=== PATIENT | male | born 1960 | race Caucasian/White ===

== ENCOUNTER 2022-10-21 08:45 | Outpatient (RCR) | payer BC, SELFPAY | END 2023-01-17 10:30 | disposition home or self-care (01) | PROVIDERS: PCP Family Medicine; Visit Provider Family Medicine | DX: S49.92XA Unspecified injury of left shoulder and upper arm, initial encounter (principal); M25.512 Pain in left shoulder; Z51.89 Encounter for other specified aftercare | CPT/HCPCS: 97110; 97140; 97161 ==